=== PATIENT | male | born 1995 | race Caucasian/White ===

== ENCOUNTER 2017-07-07 07:16 | Emergency (ER) | payer MEDICAID ==
[2017-07-07 08:36] LABS: APPEARANCE CLOUDY (CLEAR); BILIRUBIN NEGATIVE (NEGATIVE); COLOR DK YELLOW (YELLOW); GLUCOSE NEGATIVE (NEGATIVE); KETONE NEGATIVE (NEGATIVE); NITRITE NEGATIVE (NEGATIVE); PROTEIN TRACE mg/dL (NEGATIVE); UROBILINOGEN NORMAL (NORMAL)
[2017-07-07 08:45] LABS: BACTERIA FEW /hpf (NONE SEEN); EPITHELIAL CELLS OCC /hpf (0-5); RED CELLS - URINE 25-50 /hpf (0-5)
[2017-07-07 08:46] LABS: CALCIUM OXALATE CRYSTALS 0-5 /hpf (NONE SEEN); MUCUS <1+ /lpf (NONE SEEN)
[2017-07-07 08:47] LABS: CHOLESTEROL CRYSTALS NONE SEEN /hpf (NONE SEEN); TALC POWDER CRYSTALS NONE SEEN /hpf (NONE SEEN); TRIPLE PHOSPHATE CRYSTALS NONE SEEN /hpf (NONE SEEN); URIC ACID CRYSTALS NSEEN /hpf (NONE SEEN)
[2017-07-07 09:15] LABS: HEMATOCRIT 38.1 % (42.0-54.0); HEMOGLOBIN 13.4 g/dL (13.5-17.5); LYMPHOCYTES 22.2 % (15-50); MCHC 35.2 g/dL (31.0-37.0); MCV 85.4 fL (80.0-100.0); MEAN PLATELET VOLUME 8.3 fL (7.4-10.4); PLATELET COUNT 289 10x3/uL (130-400); RBC 4.46 10x6/uL (4.20-6.10); RDW 12.2 % (11.5-14.5); WBC 8.8 10x3/uL (4.8-10.8)
[2017-07-07 09:40] LABS: ALBUMIN 3.6 g/dL (3.4-5.0); ALKALINE PHOSPHATASE 75 U/L (46-116); ALT (SGPT) 39 U/L (10-68); BILIRUBIN - TOTAL 0.16 mg/dL (0.2-1.3); CALC OSMOLALITY 276 mosm/kg (275-300); CALCIUM 9.4 mg/dL (8.5-10.1); CHLORIDE - SERUM 104 mmol/L (98-107); CREATININE - SERUM 0.9 mg/dL (0.6-1.3); GLUCOSE 110 mg/dL (74-106); POTASSIUM - SERUM 4.3 mmol/L (3.5-5.1); PROTEIN - SERUM 7.2 g/dL (6.4-8.2); SODIUM 138 mmol/L (136-145); UREA NITROGEN 12 mg/dL (7-18); eGFR NON AFRICAN AMERICAN > 90 mL/min (90-120)
== END 2017-07-07 10:30 | disposition home or self-care (01) ==
LOC: D.ER 07:16
PROVIDERS: Emergency Medicine
DX: N20.1 Calculus of ureter (principal)